=== PATIENT | male | born 2000 | race Caucasian/White ===

== ENCOUNTER 2018-01-01 16:01 | Emergency (ER) | payer BC ==
[~2018-01-01] VITALS: Ht 180.3 cm; Wt 63.6 kg
[2018-01-01 16:06] VITALS: TEMP 97.8
[2018-01-01] MEDS ORDERED: ATARAX 10MG10 MG/TAB PO (17:10)
[2018-01-01] MEDS ORDERED: KLONOPIN 0.5MG0.5 MG PO (17:10)
[2018-01-01] MEDS ORDERED: PROZAC40 MG PO (17:11)
[2018-01-01 17:55] LABS: BASO % 0.6 % (0.0-2.0); EOS # 0.1 (0.0-0.7); EOS % 1.2 % (0-4.0); GRAN # 4.3 (1.4-6.5); GRAN % 58.9 % (42.2-75.2); HEMATOCRIT 40.9 % (36.0-47.0); HEMOGLOBIN 14.3 g/dl (12.5-16.1); LYMPH # 2.2 (1.2-3.4); LYMPH % 30.1 % (20.0-51.0); MEAN CELL VOLUME 91 fl (80.0-95.0); MEAN CORPUSCULAR HEMOGLOBIN 32 pg (26.0-32.0); MEAN CORPUSCULAR HGB CONC 35 g/dl (33.0-37.0); MEAN PLATELET VOLUME 8.7 fl (7.4-10.4); MONO # 0.6 (0.1-0.6); MONO % 8.9 % (1.7-9.3); PLATELET COUNT 266 K/mm3 (130-400); RED BLOOD COUNT 4.52 M/mm3 (4.20-5.60); REDCELL DISTRIBUTION WIDTH-CV 12.9 % (11.5-14.5)
[2018-01-01 18:05] LABS: ALANINE AMINOTRANSFERASE 28 U/L (21-72); ALBUMIN 4.4 gm/dL (3.5-5.0); ALKALINE PHOSPHATASE 49 U/L (50-136); ANION GAP 6 mmol/L (7-16); AST,SGOT 12 U/L (15-37); BLOOD UREA NITROGEN 12 mg/dL (9-20); CALCIUM 9.2 mg/dL (8.4-10.2); CARBON DIOXIDE 30 mmol/L (22-30); CHLORIDE 105 mmol/L (98-107); GLUCOSE 85 mg/dL (74-106); POTASSIUM 4.3 mmol/L (3.4-5.0); SODIUM 140 mmol/L (137-145); TOTAL PROTEIN 6.6 gm/dL (6.4-8.2)
[2018-01-01 18:25] LABS: TROPONIN-I < 0.012 ng/mL (0.000-0.034)
[2018-01-01 18:35] LABS: TSH w REFLEX 0.223 uIU/mL (0.465-4.680)
[2018-01-01 20:29] VITALS: BP 122/60; PULSE 62
== END 2018-01-01 20:29 | disposition home or self-care (01) ==
LOC: COL.ER 16:01
PROVIDERS: Nurse Practitioner
DX: R55 Syncope and collapse (principal); F41.9 Anxiety disorder, unspecified; F17.210 Nicotine dependence, cigarettes, uncomplicated; F12.90 Cannabis use, unspecified, uncomplicated; Z96.22 Myringotomy tube(s) status

== ENCOUNTER 2018-06-30 00:26 | Emergency (ER) | payer BC ==
[~2018-06-30] VITALS: Ht 182.9 cm; Wt 61.4 kg
[~2018-06-30 00:26] MED LIST: ATARAX 10MG10 MG/TAB PO; KLONOPIN 0.5MG0.5 MG PO; PROZAC40 MG PO
[2018-06-30 00:36] VITALS: TEMP 98.4
[2018-06-30 01:02] LABS: BASO # 0.1 (0.0-0.2); BASO % 0.6 % (0.0-2.0); EOS # 0.3 (0.0-0.7); EOS % 2.8 % (0-4.0); GRAN # 6.2 (1.4-6.5); GRAN % 52.4 % (42.2-75.2); HEMATOCRIT 42.5 % (36.0-47.0); HEMOGLOBIN 14.7 g/dl (12.5-16.1); LYMPH # 4.4 (1.2-3.4); LYMPH % 37.3 % (20.0-51.0); MEAN CELL VOLUME 90 fl (80.0-95.0); MEAN CORPUSCULAR HEMOGLOBIN 31 pg (26.0-32.0); MEAN CORPUSCULAR HGB CONC 35 g/dl (33.0-37.0); MEAN PLATELET VOLUME 8.7 fl (7.4-10.4); MONO # 0.8 (0.1-0.6); MONO % 6.6 % (1.7-9.3); PLATELET COUNT 259 K/mm3 (130-400); RED BLOOD COUNT 4.71 M/mm3 (4.20-5.60); REDCELL DISTRIBUTION WIDTH-CV 12.3 % (11.5-14.5)
[2018-06-30 01:14] LABS: ALANINE AMINOTRANSFERASE 13 U/L (21-72); ALBUMIN 4.4 gm/dL (3.5-5.0); ALKALINE PHOSPHATASE 70 U/L (50-136); ANION GAP 12 mmol/L (7-16); AST,SGOT 25 U/L (15-37); BILIRUBIN,TOTAL 0.4 mg/dL (0.0-1.0); BLOOD UREA NITROGEN 14 mg/dL (9-20); CALCIUM 9.4 mg/dL (8.4-10.2); CARBON DIOXIDE 23 mmol/L (22-30); CHLORIDE 106 mmol/L (98-107); CREATININE, serum 0.85 (0.66-1.25); GLUCOSE 91 mg/dL (74-106); LIPASE 55 U/L (23-300); POTASSIUM 3.9 mmol/L (3.4-5.0); SODIUM 141 mmol/L (137-145); TOTAL PROTEIN 6.5 gm/dL (6.4-8.2)
[2018-06-30 01:31] LABS: TROPONIN-I < 0.012 ng/mL (0.000-0.035)
[2018-06-30 01:46] VITALS: BP 124/80; PULSE 61
== END 2018-06-30 01:46 | disposition home or self-care (01) ==
LOC: COL.ER 00:26
PROVIDERS: Emergency Medicine
DX: R07.89 Other chest pain (principal); F41.9 Anxiety disorder, unspecified; F17.210 Nicotine dependence, cigarettes, uncomplicated
CPT/HCPCS: J1885; J2060